=== PATIENT | female | born 1955 | race Caucasian/White ===

== ENCOUNTER → 2018-02-02 | Outpatient (CLI) | payer MEDICARE ==
[~2018-02-02] MED LIST: ASPIR 8181 MG PO; CREON DR 36,001 EACH PO; DEPAKOTE ER500 MG PO; IRON325 PO; KEFLEX500 M1 PO; NOVOLOG100 UNIT/1 SUBQ; OMEPRAZOLE20 M2 PO; PROZAC 20 MG20 MG PO; TRAZODONE HCL50 MG PO; VERAPAMIL ER120 MG PO; VITAMIN B-12500 MCG PO; VITAMIN D3400 UNIT PO
== END ==
LOC: M.RAD 15:13
DX: Z12.31 Encounter for screening mammogram for malignant neoplasm of breast (principal); I10 Essential (primary) hypertension; F32.9 Major depressive disorder, single episode, unspecified

== ENCOUNTER → 2019-02-24 | Outpatient (CLI) | payer MEDICARE, OTHER | LOC: M.RAD 10:37 | DX: Z12.31 Encounter for screening mammogram for malignant neoplasm of breast (principal) ==

== ENCOUNTER → 2019-04-01 | Outpatient (CLI) | payer MEDICARE, OTHER | LOC: M.RAD 12:57 | DX: M47.898 Other spondylosis, sacral and sacrococcygeal region (principal); M47.816 Spondylosis without myelopathy or radiculopathy, lumbar region ==

== ENCOUNTER → 2020-04-02 | Outpatient (CLI) | payer MEDICARE, OTHER | LOC: M.RAD 14:38 | PROVIDERS: ATTEND Family Medicine | DX: Z12.31 Encounter for screening mammogram for malignant neoplasm of breast (principal) ==

== ENCOUNTER → 2020-04-11 | Outpatient (CLI) | payer MEDICARE, OTHER ==
[~2020-04-11] MED LIST changes: +CIPRO500 MG PO; +FLAGYL 250 MG250 MG PO; +LOMOTIL TABLET1 EACH PO; +LUNESTA3 MG PO; +ONDANSETRON HCL4 M2 PO
== END ==
LOC: M.LAB 09:33
PROVIDERS: ATTEND Psychiatry & Neurology Psychiatry
DX: R19.7 Diarrhea, unspecified (principal)

== ENCOUNTER 2020-04-13 12:29 | Emergency (ER) | payer MEDICARE, OTHER ==
[~2020-04-13] VITALS: Ht 157.5 cm; Wt 72.1 kg
[~2020-04-13 12:29] MED LIST changes: -CIPRO500 MG PO; -FLAGYL 250 MG250 MG PO; -LOMOTIL TABLET1 EACH PO; -LUNESTA3 MG PO; -ONDANSETRON HCL4 M2 PO
[2020-04-13] MEDS ORDERED: LUNESTA3 MG PO (12:45)
[2020-04-13] MEDS ORDERED: FLAGYL 250 MG250 MG PO (13:01)
[2020-04-13] MEDS ORDERED: CIPRO500 MG PO (13:01)
[2020-04-13 13:09] LABS: ABSOLUTE BASOPHILS 0.1 thou/uL (0.0-0.2); ABSOLUTE EOSINOPHILS 0.1 thou/uL (0.0-0.7); ABSOLUTE LYMPHOCYTES 2.8 thou/uL (0.8-5.3); ABSOLUTE MONOCYTES 0.9 thou/uL (0.0-1.2); BASOPHILS 0.8 %; EOSINOPHILS 1.8 %; HEMATOCRIT 34.4 % (37.0-47.0); HEMOGLOBIN 11.5 gm/dL (12.0-15.0); MCH 28.7 pg (26.0-34.0); MCHC 33.4 g/dL (28.0-37.0); MCV 85.9 fL (80.0-100.0); MPV 9.3 fl. (7.2-11.1); NUCLEATED RBCS 0 /100WBC; PLATELET COUNT* 258 thou/uL (150-400); POLYS 50.4 %; RDW-CV 14.3 % (10.5-14.5); WBC 7.9 thou/uL (4.0-11.0)
[2020-04-13 13:13] LABS: CALCIUM 8.9 mg/dL (8.5-10.1); CREATININE 1.1 mg/dL (0.6-1.3); POTASSIUM 3.4 mmol/L (3.5-5.1)
[2020-04-13 13:17] LABS: ALBUMIN 3.2 g/dL (3.4-5.0); TOTAL BILIRUBIN 0.3 mg/dL (<0.1-1.0); TOTAL PROTEIN 6.8 g/dL (6.4-8.2)
[2020-04-13] MEDS ORDERED: ONDANSETRON HCL4 M2 PO (15:24)
[2020-04-13] MEDS ORDERED: LOMOTIL TABLET1 EACH PO (15:24)
[2020-04-13 15:30] VITALS: BP 144/60
--- NOTE | 2020-04-13 16:42 | EKG ---
[place] [address] ELECTROCARDIOGRAM REPORT Name: LALA HENLEY Room: [facility]#: [id number] Admission: 04/13/20 Attend Phys: Discharge: 04/13/20 Date of : 51 Date of Service: 04/13/20 1311 Report #: [id number] THIS REPORT FOR: //name// [facility] ED Test Date: 2020-04-13 Test Time: 13:11:52 Pat Name: LALA HENLEY Department: Room: Gender: F Information Services Manager: [facility] : 1955 Requested By: Jenn Centeno Order Number: [id number] MD: Jabari Goldman Measurements Intervals [place] Rate: 65 P: -6 [place]: 144 QRS: -3 QRSD: 102 T: 19 QT: 429 QTc: 447 Interpretive Statements Sinus rhythm Low voltage, precordial leads RSR' in V1 or V2, right VCD or RVH Compared to ECG 04/25/2009 12:05:44 Low QRS voltage now present Sinus bradycardia no longer present Electronically Signed On 04-13-2020 16:41:50 CDT by Jabari Goldman [email or web address] <ELECTRONICALLY SIGNED> By: Jabari Goldman MD, FACC 04/13/20 1641 1311 1311 Jabari Goldman MD, FACC /EPI
== END 2020-04-13 15:30 | disposition home or self-care (01) ==
LOC: M.ERS 12:29
PROVIDERS: Nurse Practitioner Family
DX: R19.7 Diarrhea, unspecified (principal); I10 Essential (primary) hypertension; E78.00 Pure hypercholesterolemia, unspecified; Z90.49 Acquired absence of other specified parts of digestive tract